=== PATIENT | male | born 1950 | race Caucasian/White ===

== ENCOUNTER 2018-01-31 10:24 | Observation (INO) | payer OTHER, MEDICAID ==
[2018-01-31] VITALS (12 sets, daily range): BP systolic 101–122; BP diastolic 66–84
[~2018-01-31] VITALS: Ht 165.1 cm; Wt 81.6 kg
--- NOTE | ~2018-01-31 | H ---
[address] [address] HISTORY AND PHYSICAL Name: GISSEL DENNISON Room: [address] Nirali Bahena#: [id number] Admission: 01/31/18 Attend Phys: Da Angulo MD, Discharge: 02/01/18 Date of : 48 Report #: [id number] THIS REPORT FOR: //name// Please refer to the History and Physical performed in the physician's office. By: [facility]5Medical Records Staff SCOTT /DELIA
[~2018-01-31 10:24] MED LIST: ALFUZOSIN HCL10 MG PO; ASPIRIN EC81 M1 PO; CARDIZEM CD120 MG PO; CARDIZEM CD360 MG PO; CENTRUM SILVER1 EAC2 PO; COUMADIN 5 MG TA5 M1 PO; FLOMAX0.4 MG PO; FUROSEMIDE 40 M40 M1 PO; LOPRESSOR25 PO; NITROQUICK0.4 MG SC; NITROSTAT0.4 MG SUBLING; OXYBUTYNIN 5 MG5 M2 PO; PLAVIX 75 MG TA75 M1 PO; PLAVIX 75 MG TA75 MG PO; POTASSIUM20 PO; ULTRAM 50MG TAB50 MG PO; VYTORIN 10-201 EACH PO; XANAX 0.5 MG0.5 MG PO
[2018-01-31 11:03] LABS: HEMATOCRIT 45.2 % (42.0-52.0); HEMOGLOBIN 15.3 gm/dL (14.0-18.0); MCH 35.3 pg (26.0-34.0); MCHC 33.9 g/dL (28.0-37.0); MCV 104.2 fL (80.0-100.0); MPV 8.4 fl. (7.2-11.1); RBC 4.34 mil/uL (4.50-6.00); RDW-CV 13.3 % (10.5-14.5); WBC 10.2 thou/uL (4.0-11.0)
[2018-01-31 11:13] LABS: APTT 30.8 Seconds (25.0-31.3); INR 1.6; PROTIME 15.9 Seconds (9.20-11.50)
[2018-01-31 11:16] LABS: ANION GAP 7 mmol/L (7-16); BUN 16 mg/dL (7-18); CALCIUM 8.4 mg/dL (8.5-10.1); CHLORIDE 104 mmol/L (98-107); CO2 29 mmol/L (21-32); CREATININE 0.7 mg/dL (0.6-1.3); GLUCOSE 106 mg/dL (70-99); POTASSIUM 3.2 mmol/L (3.5-5.1); SODIUM 140 mmol/L (136-145)
[2018-01-31 11:21] LABS: ALBUMIN 3.4 g/dL (3.4-5.0); ALKALINE PHOSPHATASE 57 U/L (46-116); HDL CHOLESTEROL 43 mg/dL (>40); SGOT 18 U/L (15-37); SGPT 25 U/L (30-65); TOTAL BILIRUBIN 0.8 mg/dL (<0.1-1.0); TOTAL PROTEIN 7.1 g/dL (6.4-8.2); TRIGLYCERIDE 73 mg/dL (<150); VLDL 15 mg/dL (<40)
[2018-01-31 11:22] LABS: CHOLESTEROL 8 mg/dL (<200); LDL CHOLESTEROL -49 mg/dL (<100); SERUM ASSESSMENT Clear; TC:HDL 0.2 Ratio (Not establshd)
--- NOTE | 2018-01-31 17:40 | NUR ---
ASSUMED CARE OF PATIENT AT 1515 AFTER TRANSFER TO ROOM 223 FROM CROWN IRONER OPERATOR. PATIENT AWAKE, ALERT, AND ORIENTED APPROPRIATELY. ADMISSION ASSESSMENT AND DOCUMENTATION COMPLETED AND CHARTED. CATH SITE TO RIGHT GROIN DRESSING CLEAN, DRY, AND INTACT. NO S/S HEMATOMA. ON BEDREST UNTIL 2114. DENIES NEEDS AT THIS TIME. CALL LIGHT WITHIN REACH. NURSING WILL CONTINUE TO MONITOR.
[2018-02-01 00:22] VITALS: BP 102/68
--- NOTE | 2018-02-01 04:02 | NUR ---
PATIENT RESTING MOST OF THE NIGHT. ASSIST WITH TURNING. IVF RUNNING WITHOUT DIFFICULTIES. NO COMPLAINTS. RT GROIN DRESSING DRY, AND INTACT. NO COMPLAINTS OF PAIN, SOA, OR DISCOMFORT. WILL CONT. WITH CURRENT PLAN OF CARE.
[2018-02-01 04:33] LABS: HEMATOCRIT 42.7 % (42.0-52.0); HEMOGLOBIN 14.5 gm/dL (14.0-18.0); MCH 35.6 pg (26.0-34.0); MCHC 33.9 g/dL (28.0-37.0); MCV 104.8 fL (80.0-100.0); MPV 8.5 fl. (7.2-11.1); RBC 4.07 mil/uL (4.50-6.00); RDW-CV 13.1 % (10.5-14.5); WBC 7.9 thou/uL (4.0-11.0)
[2018-02-01 04:55] LABS: CALCIUM 8.4 mg/dL (8.5-10.1); CREATININE 0.6 mg/dL (0.6-1.3); POTASSIUM 3.4 mmol/L (3.5-5.1); TOTAL PROTEIN 6.2 g/dL (6.4-8.2); TROPONIN-I LEVEL 0.09 ng/mL (<0.06)
[2018-02-01 05:36] VITALS: BP 102/61
[2018-02-01 07:50] VITALS: BP 127/74
[2018-02-01 10:27] VITALS: BP 106/66
[2018-02-01] MEDS ORDERED: EFFIENT10 MG PO (11:01)
[2018-02-01] MEDS ORDERED: ELIQUIS5 MG PO (11:02)
--- NOTE | 2018-02-01 11:49 | NUR ---
ASSUMED PT CARE AT 0730, FULL ASSESMENT DONE CHARTED. PT A/O X4, DENIES PAIN, VSS, C/O DIZZYNESS. PT ATE BREAKFAST AND FEELS BETTER. DIZZYNESS RESOLVED. RECIEVED DISCHARGE ORDERS FROM DR SHEPHERD. PT AND EDUCATED ON NEW MEDS AND ORDERS. ALL QUESTIONS ANSWERED. PT DISCHARGED HOME WITH AT APPROX 1145
--- NOTE | 2018-02-01 12:58 | EKG ---
[place] [address] ELECTROCARDIOGRAM REPORT Name: GISSEL DENNISON Room: [address]#: [id number] Admission: 01/31/18 Attend Phys: Da Angulo MD, Discharge: 02/01/18 Date of : 48 Report #: [id number] THIS REPORT FOR: //name// [facility] Test Date: 2018-01-31 Test Time: 11:27:24 Pat Name: GISSEL DENNISON Department: Room: Gender: Kinesiology Internship: : 1950 Requested By: Da Angulo Order Number: [id number] Paramjit MD: Da Angulo Measurements Intervals [place] Rate: 72 P: OR: QRS: 46 QRSD: 60 T: QT: 517 QTc: 566 Interpretive Statements Atrial fibrillation Low voltage, extremity and precordial leads Prolonged QT interval Baseline wander in lead(s) V1 No previous ECG available for comparison Electronically Signed On 02-01-2018 12:58:40 CDT by Da Angulo [email or web address] <ELECTRONICALLY SIGNED> By: Da Angulo MD, [facility] 02/01/18 1258 1127 1127 Da Angulo MD, [facility] /EPI
--- NOTE | 2018-02-01 13:02 | EKG ---
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: : 1950 Requested By: Da Angulo Order Number: [id number] Paramjit MD: Da Angulo Measurements Intervals [place] Rate: 78 P: OR: QRS: 52 QRSD: 60 T: QT: 527 QTc: 601 Interpretive Statements Atrial fibrillation Low voltage, extremity and precordial leads Minimal ST elevation, inferior leads Prolonged QT interval No previous ECG available for comparison Electronically Signed On 02-01-2018 13:01:59 CDT by Da Angulo [email or web address] <ELECTRONICALLY SIGNED> By: Da Angulo MD, [facility] 02/01/18 1301 1550 1550 Da Angulo MD, FAC /EPI
--- NOTE | 2018-02-01 13:08 | EKG ---
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: : 1950 Requested By: Da Angulo Order Number: [id number] Paramjit MD: Da Angulo Measurements Intervals [place] Rate: 67 P: PA: QRS: 43 QRSD: 62 T: QT: 499 QTc: 527 Interpretive Statements Atrial fibrillation Low voltage, extremity and precordial leads Nonspecific T abnormalities, lateral leads Prolonged QT interval No previous ECG available for comparison Electronically Signed On 02-01-2018 13:08:40 CDT by Da Angulo [email or web address] <ELECTRONICALLY SIGNED> By: Da Angulo MD, [facility] 02/01/18 1308 Da Angulo MD, [facility] /EPI
--- NOTE | 2018-02-01 14:06 | CARD ---
[address] [address] CARDIAC CATH REPORT Name: GISSEL DENNISON RA Room: [address] Nirali Bahena#: [id number] Admission: 01/31/18 Attend Phys: Da Angulo MD, Discharge: 02/01/18 Date of : 48 Report #: [id number] THIS REPORT FOR: //name// APPROVED REPORT Study performed: 01/31/2018 12:44:09 Patient Details Patient Status: Out-Patient Room #: The patient is a 67 year-old male Event Personnel Da Angulo Environmental Services Manager, Sharron Gresham RTR Monitor, Courtney Barney Monitor, Oscar Moffett Hintermaier, Elena RN cheese blender Performed Art Access - R femoral artery* , Left Heart Catheterization, Selective Right and Left Coronary Angiography, PTCA with Stenting of the left main coronary artery; angioplasty of the mid LAD Indication Unstable angina Risk Factors Hypercholesterolemia, Hypertension Previous Procedures/Diagnoses Previous PCI Admission/Lab Medications/Medications given during procedure Aspirin, Platelet Aff. Inhib., Angiomax bolus and infusion Procedure Narrative The patient was brought electively to the Cardiac Catheterization Laboratory and was prepped and draped in a sterile manner. The right femoral was infiltrated with 2% Lidocaine subcutaneous anesthesia. A Windsor 6 FR sheath was inserted into the right femoral artery. Coronary angiography was performed using coronary diagnostic catheters. The right coronary system was accessed and visualized with a 6fr JR 4 catheter. The left coronary system was accessed and visualized with a 6fr JL 4 catheter. The left ventricle was accessed and visualized with a 6fr Straight Pigtail catheter. Left ventricular/Aortic Valve gradient assessed [place] [address] CARDIAC CATH REPORT Name: GISSEL DENNISON Room: [address] Nirali Bahena#: [id number] Admission: 01/31/18 Attend Phys: Da Angulo MD, Discharge: 02/01/18 Date of : 48 Report #: [id number] Left ventriculogram was performed in COLE projection. Pre-demployment femoral angiogram was performed . Closure device was deployed with a 6 Fr Angioseal STS 6Fr. The patient tolerated the procedure well and there were no complications associated with the procedure. There was no hematoma. Intraoperative Conscious Sedation Sedation start time: 13:34 Case end Time: 14:40 Fentanyl 75 mcg Versed 3 mg Fluoro Time: 20 minutes Dose: DAP [id number] cGycm2 489988 mGy Contrast Type and Amount: Visipaque 390 ml Coronary Angiography The patient's coronary anatomy is right dominant. Diagnostic Cath Left Main 90 Percent calcified proximal stenosis LAD Sequential 75 and 60% mid LAD stenoses Circumflex 40% mid vessel narrowing Right Coronary Dominant vessel with 40% ostial 80% clefted calcified mid and 30% distal narrowing Left Ventriculography The left ventricle is normal in size with normal contractility. The left ventricular ejection fraction is estimated to be 55%. Left ventricular wall motion abnormalities are present. There is no mitral insufficiency. Mild anterolateral hypokinesis is noted IVUS Intravascular Ultrasound was performed on the mid left anterior descending artery segment vessel. IVUS Findings NC Trek RX 2.75 X 12 Hemodynamics The aortic pressure is 125/55 mmHg with a mean of mmHg. The left ventricular pressure is 114/5 mmHg with a mean of mmHg. The left ventricular end diastolic pressure is 10 mmHg. There was no gradient across the aortic valve upon pullback. Pullback from the left ventricle to the aorta revealed no gradient [place] [address] CARDIAC CATH REPORT Name: GISSEL DENNISON RA Room: [address] Shruti#: [id number] Admission: 01/31/18 Attend Phys: Da Angulo MD, Discharge: 02/01/18 Date of : 48 Report #: [id number] PCI Technique Lesion Percutaneous coronary intervention was performed on the mid left anterior descending artery segment. The lesion stenosis prior to intervention was 75% with KATHLEEN 3 flow. A 6F XB LAD 3.5 Guide Catheter was used to engage the ostium. A IG: ProwaterFlex 180CM Interventional Guidewire was used to cross the lesion. BALLOON DILATION A Balloon catheter NC Trek RX 2.75 X 12 was inserted and inflated up to 16.00atm for 16seconds. Final angiography reveals 30 % stenosis with KATHLEEN 3 flow. PCI Technique Lesion Percutaneous coronary intervention was performed on the mid left anterior descending artery segment. BALLOON DILATION A Balloon catheter NC Trek RX 2.75 X 12 was inserted and inflated up to 17.00atm for 14seconds. Additional Inflation: 20.00atm for 9seconds. PCI Technique Lesion 2 Percutaneous Coronary Intervention was performed on the proximal left main coronary artery. The lesion stenosis prior to intervention was 90% with KATHLEEN 3 flow. Balloon Dilation A Balloon catheter NC Trek RX 2.75 X 12 was inserted and inflated up to 18.00atm for 10seconds. Additional Inflation: 22.00atm for 7seconds. Stent Deployment A drug-eluting stent Xience Alpine RX 3.0X8 was inserted and inflated up to 18.00atm for 12seconds. Additional Inflation: 20.00atm for 8seconds. Post Stent Deployment Balloon Dilation A Balloon catheter NC Trek RX 3.5 X 8 was inserted and inflated up to 20atm for 10seconds. Additional Inflation: 20.00atm for 9seconds. Final angiography reveals 15 % stenosis with KATHLEEN 3 [place] [address] CARDIAC CATH REPORT Name: JUMA,LEE RA Room: [address] Nirali Bahena#: [id number] Admission: 01/31/18 Attend Phys: Da Angulo MD, Discharge: 02/01/18 Date of : 48 Report #: [id number] Conclusion #1 significant multivessel coronary artery disease characterized by the following: A 90% calcified proximal left main coronary artery stenosis B tandem 75 and 60% mid LAD stenoses C 40% narrowing of the midportion of the nondominant circumflex D dominant right coronary artery with 40% ostial 80% clefted calcified mid and 30% distal narrowing #2 normal global left ventricular systolic function, estimated ejection fraction of 55% with mild anterolateral hypokinesis #3 normal left-sided hemodynamics study #4 successful percutaneous transluminal coronary angioplasty at the site of 75% calcified in-stent mid LAD stenosis with 30% residual narrowing and KATHLEEN-3 flow the distal vessel #5 successful percutaneous coronary intervention with deployment of drug-eluting stent at site of 90% proximal left main coronary stenosis with 15% residual narrowing and KATHLEEN-3 flow to the distal circulation Recommendations Cardiac Risk Reduction Program Aggressive Medical Therapy Medications Administered Aspirin (any) Prasugrel Diagnostic Cath Approved by: Da Angulo MD Date/Time: 02/01/18 at 1404 hrs. <ELECTRONICALLY SIGNED> By: Da Angulo MD, FACC 02/01/18 1406 140 140Da Angulo MD, FACC /INF
--- NOTE | 2018-02-01 15:22 | D ---
[address] [address] DISCHARGE SUMMARY Name: GISSEL DENNISON Room: [address] Nirali Bahena#: [id number] Admission: 01/31/18 Attend Phys: Da Angulo MD, Discharge: 02/01/18 Date of : 48 Report #: [id number] THIS REPORT FOR: //name// CC: [facility] DATE OF SERVICE: 02/01/2018 FINAL DISCHARGE DIAGNOSES: 1. Unstable angina. 2. Coronary artery disease status post stenting of the left main coronary artery and angioplasty of the mid left anterior descending. 3. Permanent atrial fibrillation. 4. History of poliomyelitis at age 1. 5. Hypertension. PROCEDURES: 01/31/2018 -- left heart catheterization, left ventriculography, selective coronary arteriography, and stenting of the left main coronary artery at the site of 90% stenosis with angioplasty of a moderately severe mid LAD lesion. The patient is a very pleasant 67-year-old male with a history of childhood poliomyelitis. He has had complex coronary artery disease, status post multiple prior stents. He has underlying hypertension and permanent atrial fibrillation. Recently, he noted recrudescence of chest pain and dyspnea on exertion typical of his prior anginal syndrome following a pattern of clinical instability. In that context, I performed cardiac catheterization on 01/31/2018, which revealed 90% ostial left main coronary narrowing with 70% mid LAD narrowing and 80% mid right coronary stenosis, this being a dominant vessel. I performed percutaneous coronary intervention of the left main, deploying one 3.0 x 8 mm Xience Alpine drug-eluting stent at the ostium LAD, post-dilating to 3.5 mm with 10% residual narrowing and KATHLEEN 3 flow of the distal vessel. I dilated the in-stent restenosis mid LAD lesion with 30% residual narrowing. Given the dye load and radiation exposure, I elected to plan a staged intervention to the high grade mid right coronary stenosis. He did well post-procedurally without problems with hemostasis at the right femoral site of catheterization. Experienced transitory dizziness, which cleared without specific intervention. He demonstrated the following laboratory on 02/01/2018. Hemoglobin 14.5, white blood cell count 7900 with 159,000 platelets. Sodium 140, potassium 3.2, [place] [address] DISCHARGE SUMMARY Name: GISSEL DENNISON RA [address]: [address] [id number] Admission: 01/31/18 Attend Phys: Da Angulo MD, Discharge: 02/01/18 Date of : 48 Report #: [id number], creatinine 0.7. He ambulated in his usual fashion with some difficulty by virtue of the childhood poliomyelitis using his arms for activities and was discharged to home on the following medications: Alfuzosin 10 mg daily, aspirin 81 mg daily, diltiazem 120 mg daily, Vytorin 10/20 daily, metoprolol tartrate 12.5 mg b.i.d., Centrum Silver 1 tablet daily, oxybutynin chloride 5 mg at bedtime, Effient 10 mg daily with a 60 mg loading dose, alprazolam 0.5 mg p.r.n., p.r.n. sublingual nitroglycerin, Ultram 50 mg every 6 hours as needed for pain, and institution of Eliquis 5 mg b.i.d. to be started on 02/02/2018 in the context of his permanent atrial fibrillation. I will plan to see the patient in the office on 02/06/2018 to review his clinical status with consideration of a stage intervention of the right coronary artery and timing for same. Thus, the patient is discharged to home in stable condition on the aforementioned medications with followup as iterated above. <ELECTRONICALLY SIGNED> By: Da Angulo MD, [facility] 02/01/18 1522 0957 1100Joashok Angulo MD, FAC /nt
== END 2018-02-01 11:43 | disposition home or self-care (01) ==
LOC: M.CL 10:24 → M.2W 15:04 → M.TBA-ER 15:04 → M.2W 15:04
PROVIDERS: ADMIT Internal Medicine
DX: I25.110 Atherosclerotic heart disease of native coronary artery with unstable angina pectoris (principal); I48.2 Chronic atrial fibrillation; A80.9 Acute poliomyelitis, unspecified; I10 Essential (primary) hypertension; E78.5 Hyperlipidemia, unspecified; Z95.5 Presence of coronary angioplasty implant and graft

== ENCOUNTER 2018-02-14 10:44 | Observation (INO) | payer OTHER, MEDICAID ==
[2018-02-14] VITALS (14 sets, daily range): BP systolic 99–129; BP diastolic 63–81
[~2018-02-14] VITALS: Ht 165.1 cm; Wt 79.4 kg
--- NOTE | ~2018-02-14 | H ---
[address] [address] HISTORY AND PHYSICAL Name: GISSEL DENNISON Room: [address] Nirali Bahena#: [id number] Admission: 02/14/18 Attend Phys: Da Angulo MD, Discharge: 02/15/18 Date of : 48 Report #: [id number] THIS REPORT FOR: //name// Please refer to the History and Physical performed in the physician's office. By: 1536Medical Records Staff SCOTT /DELIA
[~2018-02-14 10:44] MED LIST changes: +EFFIENT10 MG PO; +ELIQUIS5 MG PO
[2018-02-14 11:30] LABS: HEMATOCRIT 45.9 % (42.0-52.0); HEMOGLOBIN 15.5 gm/dL (14.0-18.0); MCH 35.2 pg (26.0-34.0); MCHC 33.8 g/dL (28.0-37.0); MCV 104.2 fL (80.0-100.0); MPV 8.5 fl. (7.2-11.1); RBC 4.41 mil/uL (4.50-6.00); RDW-CV 13.3 % (10.5-14.5); WBC 7.6 thou/uL (4.0-11.0)
[2018-02-14 11:37] LABS: CALCIUM 8.6 mg/dL (8.5-10.1); CREATININE 0.7 mg/dL (0.6-1.3); POTASSIUM 3.2 mmol/L (3.5-5.1)
[2018-02-14 11:39] LABS: APTT 28.4 Seconds (25.0-31.3); INR 1.1; PROTIME 10.9 Seconds (9.20-11.50)
--- NOTE | 2018-02-14 13:42 | EKG ---
[place] [address] ELECTROCARDIOGRAM REPORT Name: GISSEL DENNISON Room: [address] [place] .R.#: [id number] Admission: 02/14/18 Attend Phys: Da Angulo MD, Discharge: Date of : 48 Report #: [id number] THIS REPORT FOR: //name// [facility] Test Date: 2018-02-14 Test Time: 11:11:12 Pat Name: GISSEL DENNISON Department: Room: Gender: Physician Specialist: [facility] : 1950 Requested By: Da Angulo Order Number: [id number] Reading MD: Tru Brooks Measurements Intervals [place] Rate: 82 P: TN: QRS: 46 QRSD: 68 T: 242 QT: 443 QTc: 518 Interpretive Statements Atrial fibrillation Low voltage, extremity and precordial leads Nonspecific T abnormalities, lateral leads Prolonged QT interval Compared to ECG 02/01/2018 08:36:06 No significant changes Electronically Signed On 02-14-2018 13:42:22 CDT by Tru Brooks [email or web address] <ELECTRONICALLY SIGNED> By: Tru Brooks MD, FACC 02/14/18 1342 1111 1111 Tru Brooks MD, [facility] /EPI
--- NOTE | 2018-02-14 18:06 | EKG ---
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: [facility] : 1950 Requested By: Da Angulo Order Number: [id number] Paramjit MD: Tru Brooks Measurements Intervals [place] Rate: 76 P: [place]: QRS: 45 QRSD: 93 T: 117 QT: 480 QTc: 540 Interpretive Statements Atrial fibrillation Low voltage, extremity and precordial leads Nonspecific T abnormalities, lateral leads Prolonged QT interval Compared to ECG 02/14/2018 11:11:12 No significant changes Electronically Signed On 02-14-2018 18:06:36 CDT by Tru Brooks [email or web address] <ELECTRONICALLY SIGNED> By: Tru Brooks MD, [facility] 02/14/18 1806 1340 1340 Tru Brooks MD, [facility] /EPI
[2018-02-15] VITALS: BP 100/61
[2018-02-15 04:00] VITALS: BP 99/58
[2018-02-15 04:33] LABS: HEMATOCRIT 41.6 % (42.0-52.0); HEMOGLOBIN 14.1 gm/dL (14.0-18.0); MCH 35.6 pg (26.0-34.0); MCHC 33.9 g/dL (28.0-37.0); MPV 8.8 fl. (7.2-11.1); RBC 3.96 mil/uL (4.50-6.00); RDW-CV 13.1 % (10.5-14.5); WBC 6.9 thou/uL (4.0-11.0)
[2018-02-15 04:45] LABS: ALBUMIN 2.9 g/dL (3.4-5.0); ALKALINE PHOSPHATASE 57 U/L (46-116); ANION GAP 5 mmol/L (7-16); BUN 13 mg/dL (7-18); CHLORIDE 109 mmol/L (98-107); CHOLESTEROL 85 mg/dL (<200); CO2 30 mmol/L (21-32); CREATININE 0.8 mg/dL (0.6-1.3); GLUCOSE 110 mg/dL (70-99); HDL CHOLESTEROL 41 mg/dL (>40); LDL CHOLESTEROL 32 mg/dL (<100); SGOT 14 U/L (15-37); SGPT 20 U/L (30-65); SODIUM 144 mmol/L (136-145); TC:HDL 2.1 Ratio (Not establshd); TOTAL BILIRUBIN 0.5 mg/dL (<0.1-1.0); TOTAL PROTEIN 5.8 g/dL (6.4-8.2); TRIGLYCERIDE 63 mg/dL (<150); TROPONIN-I LEVEL <0.06 ng/mL (<0.06); VLDL 13 mg/dL (<40)
[2018-02-15 04:50] LABS: POTASSIUM 4.4 mmol/L (3.5-5.1)
[2018-02-15 05:50] LABS: SERUM ASSESSMENT Clear
[2018-02-15 08:00] VITALS: BP 110/74
[2018-02-15 10:15] VITALS: BP 116/76
[2018-02-15] MEDS ORDERED: NITROGLYCERIN0.4 MG SUBLING (10:18)
--- NOTE | 2018-02-15 15:21 | EKG ---
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: : 1950 Requested By: Da Angulo Order Number: [id number] Paramjit MD: Da Angulo Measurements Intervals [place] Rate: 73 P: OR: QRS: 60 QRSD: 94 T: 45 QT: 428 QTc: 472 Interpretive Statements Atrial fibrillation Low voltage, extremity and precordial leads Compared to ECG 02/14/2018 13:40:07 T-wave abnormality no longer present Prolonged QT interval no longer present Electronically Signed On 02-15-2018 15:21:50 CDT by Da Angulo [email or web address] <ELECTRONICALLY SIGNED> By: Da Angulo MD, [facility] 02/15/18 1521 0829 0829 Da Angulo MD, [facility] /EPI
--- NOTE | 2018-02-16 10:05 | D ---
[address] [address] DISCHARGE SUMMARY Name: JUMAGISSEL Room: [address] Nirali Bahena#: [id number] Admission: 02/14/18 Attend Phys: Da Angulo MD, Discharge: 02/15/18 Date of : 48 Report #: [id number] THIS REPORT FOR: //name// CC: [facility] DATE OF SERVICE: 02/15/2018 FINAL DISCHARGE DIAGNOSES: 1. Unstable angina. 2. Status post percutaneous coronary intervention of the right coronary artery and previously to the left main and left anterior descending. 3. Permanent atrial fibrillation. 4. Hypertension. 5. Poliomyelitis in childhood. PROCEDURES: On 02/14/2018 - left heart catheterization, selective coronary arteriography and percutaneous coronary intervention with deployment of drug-eluting stent at the site of 80% calcified mid right coronary stenosis. HOSPITAL COURSE: The patient is a very pleasant 67-year-old male with coronary artery disease, hypertension and permanent atrial fibrillation. Recently, he has noted recrudescence of chest pain similar to his prior angina following an unstable course. Two weeks ago, I performed intervention on the left main and mid LAD, with a good angiographic result. He also demonstrated a high-grade mid right coronary stenosis at that time. Given the clinical findings, I performed re-catheterization on 02/15/2018, which revealed widely patent left main stent with a widely patent and dilated mid LAD. I performed intervention on the mid right coronary artery, deploying one 2.5 x 14 mm Integrity Resolute drug-eluting stent, post-dilated to 2.75 mm with 10% residual narrowing and KATHLEEN 3 flow of the distal vessel. Troponin remained in the reference range of less than 0.06. He did well post-procedurally and was continued on dual antiplatelet therapy with aspirin and Effient. There was good hemostasis at the right femoral site of catheterization. DISCHARGE MEDICATIONS: The patient was discharged to home on 02/15/2018 on the following medications: Alfuzosin 10 mg daily; apixaban 5 mg b.i.d., to be resumed on 02/17/2018; diltiazem 120 mg extended release daily; Vytorin 10/20 daily; metoprolol tartrate 12.5 mg b.i.d.; oxybutynin 5 mg at bedtime; prasugrel or Effient 10 mg daily; alprazolam 0.5 mg every 6-8 hours p.r.n.; tramadol 50 mg q. 6 hours as needed and aspirin 81 mg daily. I will plan to see the patient in the office in 4-6 weeks for clinical followup. I suggested re-participation [place] [address] DISCHARGE SUMMARY Name: GISSEL DENNISON Room: [address] Nirali Bahena#: [id number] Admission: 02/14/18 Attend Phys: Da Angulo MD, Discharge: 02/15/18 Date of : 48 Report #: [id number] [facility] in [place]. Thus, the patient is discharged to home in stable condition on the aforementioned medications with followup as iterated above. <ELECTRONICALLY SIGNED> By: Da Angulo MD, [facility] 02/16/18 1005 0950 1033Joashok Angulo MD, FAC /nt
--- NOTE | 2018-02-16 11:17 | CARD ---
[address] [address] CARDIAC CATH REPORT Name: JUMAGISSEL Room: [address] Nirali Bahena#: [id number] Admission: 02/14/18 Attend Phys: Da Angulo MD, Discharge: 02/15/18 Date of : 48 Report #: [id number] THIS REPORT FOR: //name// APPROVED REPORT Study performed: 02/14/2018 11:57:18 Patient Details Patient Status: Out-Patient Room #: The patient is a 67 year-old male Event Personnel Da Angulo Tankage Supervisor, Lizzy Gresham Batch Analyst, Bowen Bynum (R) Monitor, Oscar Moffett, Mariana Payne RN Batch Analyst Procedures Performed CHRIS Place w/wo Plasty Single RCA; left heart catheterization with selective coronary arteriography Indication Unstable angina Risk Factors Hypercholesterolemia, Hypertension Previous Procedures/Diagnoses Previous PCI Admission/Lab Medications/Medications given during procedure Aspirin, Platelet Aff. Inhib., Angiomax bolus and infusion Procedure Narrative The patient was brought electively to the Cardiac Catheterization Laboratory and was prepped and draped in a sterile manner. A Escalon 6 FR sheath was inserted into the Right Femoral Artery. Coronary angiography was performed using coronary diagnostic catheters. The right coronary system was accessed and visualized with a Diagnostic JR4 catheter. The left coronary system was accessed and visualized with a Diagnostic JL4 catheter. The left ventricle was accessed and visualized with a Diagnostic Angled Pigtail catheter. Left ventricular/Aortic Valve gradient assessed via catheter pullback. Closure device was deployed with a Fr Angioseal STS 6Fr. The patient tolerated the procedure well and there were no complications [place] [address] CARDIAC CATH REPORT Name: JUMAGISSEL FINLEY RA Room: [address] Nirali Bahena#: [id number] Admission: 02/14/18 Attend Phys: Da Angulo MD, Discharge: 02/15/18 Date of : 48 Report #: [id number] Intraoperative Conscious Sedation Sedation start time: 12:29 Case end Time: 13:13 Fentanyl 25 mcg Versed 2 mg Fluoro Time: 8.5 minutes Dose: DAP [id number] cGycm2 1830 mGy Contrast Type and Amount: Visipaque 150 ml Diagnostic Cath Left Main 10% narrowing at the stented proximal left main coronary site LAD 40% mid LAD in-stent restenosis 60% calcified midcircumflex narrowing Right Coronary 80% heavily calcified mid right coronary stenosis with 34-40% proximal narrowing Left Ventriculography Left Ventriculography was not performed. IVUS A Guide Catheter was used to engage the 6F JR 4.0 ostium. A IG: ProwaterFlex 180CM was used. IVUS Findings NC Trek RX 2.5 X 12 Hemodynamics The aortic pressure is 120/72 mmHg with a mean of 91 mmHg. The left ventricular pressure is 105/3 mmHg with a mean of mmHg. The left ventricular end diastolic pressure is 10 mmHg. PCI Technique Lesion Anticoagulation was achieved with Angiomax. Patient was preloaded with Angiomax IV 12 ml. Percutaneous coronary intervention was performed on the mid right coronary artery. The lesion stenosis prior to intervention was 80% with KATHLEEN 3 flow. A 6F JR 4.0 Guide Catheter was used to engage the ostium. A IG: ProwaterFlex 180CM Interventional Guidewire was used to cross the lesion. BALLOON DILATION A Balloon catheter Trek RX 2.5 X 12 was inserted and inflated up to 12.00atm for 12seconds. Additional Inflation: 15.00atm for 10seconds. [place] [address] CARDIAC CATH REPORT Name: GISSEL DENNISON Room: [address] Nirali Bahena#: [id number] Admission: 02/14/18 Attend Phys: Da Angulo MD, Discharge: 02/15/18 Date of : 48 Report #: [id number] STENT DEPLOYMENT A drug-eluting stent Resolute RX 2.5X14 was inserted and inflated up to 15atm for 15seconds. POST STENT DEPLOYMENT BALLOON DILATION A Balloon catheter NC Trek RX 2.75 X 8 was inserted and inflated up to 16atm for 10seconds. Final angiography reveals 10 % stenosis with KATHLEEN 3 flow. PCI Technique Lesion A 6F JR 4.0 Guide Catheter was used to engage the ostium. A IG: ProwaterFlex 180CM Interventional Guidewire was used to cross the lesion. BALLOON DILATION A Balloon catheter NC Trek RX 2.5 X 12 was inserted and inflated up to 18.00atm for 11seconds. Additional Inflation: 20.00atm for 9seconds. Additional Inflation: 22.00atm for 9seconds. STENT DEPLOYMENT A drug-eluting stent Resolute RX 2.5X14 was inserted and inflated up to 12.00atm for 12seconds. Additional Inflation: 16.00atm for 9seconds. POST STENT DEPLOYMENT BALLOON DILATION A Balloon catheter NC Trek RX 2.75 X 8 was inserted and inflated up to 16.00atm for 9seconds. Additional Inflation: 18.00atm for 7seconds. Additional Inflation: 20.00atm for 8seconds. Conclusion #1 Significant multivessel coronary artery disease characterized by the following A 10% narrowing of a previously stented left main coronary artery B 40% mid LAD in-stent restenosis C 60% calcified midcircumflex stenosis, this being a nondominant vessel D dominant right coronary artery with 30-40% proximal narrowing and 80% heavily calcified mid vessel stenosis #2 normal left-[place] [address] CARDIAC CATH REPORT Name: JUMAGISSEL FINLEY RA Room: [address] Nirali Bahena#: [id number] Admission: 02/14/18 Attend Phys: Da Angulo MD, Discharge: 02/15/18 Date of : 48 Report #: [id number] #3 successful percutaneous coronary intervention with deployment of drug-eluting stent at site of 80% heavily calcified mid right coronary stenosis with 10% residual narrowing and KATHLEEN-3 flow the distal vessel Recommendations Cardiac Risk Reduction Program Aggressive Medical Therapy Medications Administered Aspirin (any) Prasugrel Diagnostic Cath Approved by: Da Angulo MD Date/Time: 02/16/18 and 1115 hrs. <ELECTRONICALLY SIGNED> By: Da Angulo MD, FAC 02/16/181115 15 15Da Angulo MD, FACC /INF
== END 2018-02-15 11:15 | disposition home or self-care (01) ==
LOC: M.CL 10:44 → M.2W 13:32 → M.TBA-CV 13:32 → M.2W 14:39
PROVIDERS: ADMIT Internal Medicine
DX: I25.110 Atherosclerotic heart disease of native coronary artery with unstable angina pectoris (principal); I48.2 Chronic atrial fibrillation; I10 Essential (primary) hypertension; A80.9 Acute poliomyelitis, unspecified; E78.5 Hyperlipidemia, unspecified; Z95.5 Presence of coronary angioplasty implant and graft

== ENCOUNTER → 2018-07-25 | Outpatient (CLI) | payer OTHER, MEDICAID ==
[~2018-07-25] MED LIST changes: +NITROGLYCERIN0.4 MG SUBLING
--- NOTE | 2018-07-25 16:39 | CARDNUC ---
[place] [address] CARDIAC NUCLEAR IMAGING REPORT Name: GISSEL DENNISON Room: [facility] [facility]#: [id number] Admission: 07/25/18 Attend Phys: Gurwinder Muller Discharge: Date of : 48 Date of Service: 07/25/18 1639 Report #: [id number] THIS REPORT FOR: //name// APPROVED REPORT Imaging Protocol: Rest Tc-99m/Stress Tc-99m 1 day Study performed: 07/25/2018 11:30:00 Indication: Atrial Fibrillation s/pstents Patient Location: Out-Patient Stress Tech: Padmini Munoz Stress Nurse: Lenora Obrien RN NM Tech:VINAY Bolanos Ht: 5 ft 5 in Wt: 180 lbs BSA: 1.89 m2 BMI: 29.95 Medical History Medical History: a fib, cad, hyperlipidemia, hypertension, hx polio Medications: eliquis, asa 81, diltiazem, vytorin, metoprolol, effient Allergies: nkda Cardiac Risk Factors: age, hyperlipidemia, Previous Cardiac Procedures: pci Exercise History: Sedentary Meds Held (24 hrs): metoprolol Resting Data Rest SPECT myocardial perfusion imaging was performed in supine position 30 minutes following the intravenous injection of 11.9 mCi of Tc-99m Sestamibi. Time of rest injection: 1245 Date: 07/25/2018 Time of rest imagin The images were gated to evaluate regional wall motion and calculate left ventricular ejection fraction. Administration Route: IV Administration Site: Right Hand Pharmacologic Stress Pharmacologic stress test was performed by injecting Regadenoson 0.4 mg IV push over 10-15 seconds immediately followed by the intravenous injection of 33.7 mCi of Tc-99m Sestamibi. Time of stress injection: 1425 Time [place] [address] CARDIAC NUCLEAR IMAGING REPORT Name: GISSEL DENNISON Room: [facility]#: [id number] Admission: 07/25/18 Attend Phys: Gurwinder Muller Discharge: Date of : 48 Date of Service: 07/25/18 1639 Report #: [id number] Administration Route: IV Administration Site: Right Hand Gated Stress SPECT was performed 40 minutes after stress injection. The images were gated to evaluate regional wall motion and calculate left ventricular ejection fraction. Stress only was performed in the Supine position. Stress Test Details Stress Test: Pharmacologic stress testing performed using 0.4 mg of regadenoson per 5 mL given IV over 10 seconds. Reason for pharmacologic stress test: physical limitation. HR Max Heart Rate (APMHR): 152 bpm Resting HR: 82 bpm Target HR (85% APMHR): 129 bpm Max HR Achieved: 131 bpm % of APMHR: 86 Recovery HR: 103 bpm HR response to stress: Normal HR response to stress BP Resting BP: 123/70 mmHg Max BP: 128/73 mmHg Recovery BP: 133/83 mmHg BP response to stress: Normal blood pressure response to stress. ECG Resting ECG: afib nst Stress ECG: afib ST Change: none Recovery ECG: afib Recovery ST Change: none Clinical Reason for Termination: Completed protocol Stress Symptoms: None Exercise duration: 0 min sec Exercise capacity: 1 METs Nurse Comments pt wheelchair bound Stress ECG Conclusion negative ischemia, afib [place] [address] CARDIAC NUCLEAR IMAGING REPORT Name: JUMAGISSEL RA Room: [facility]#: [id number] Admission: 07/25/18 Attend Phys: Gurwinder Muller Discharge: Date of : 48 Date of Service: 07/25/18 1639 Report #: [id number] Study: Fair Artifact: Moderate Soft tissue attenuation artifact Study Data At rest, the left ventricular ejection fraction was 80%.. Post stress, the left ventricular ejection was 80%.. SSS: 9 SRS: 7 SDS: 2 TID = 1.04. Perfusion Review of SPECT images reveals a patchy, inhomongenous uptake of tracer in all segments, but no defined reversible defects. Images were reviewed using Xeleris. Wall Motion normal all segments Nuclear Conclusion ECG Findings: negative for ischemia Clinical Findings: negative for ischemia Nuclear Findings: negative for ischemia Exercise Capacity: not assessed Left Ventricular Function: normal Risk Study: low Negative perfusion nuclear stress test for ischemia. Normal LV function.Afib noted. <Conclusion> negative ischemia, afib noted <ELECTRONICALLY SIGNED> By: Carter Calhoun MD, FACC 07/25/18 1639 1639 1639 Carter Calhoun MD, FACC /INF
== END ==
LOC: M.NUC 11:34
DX: I48.91 Unspecified atrial fibrillation (principal); I25.10 Atherosclerotic heart disease of native coronary artery without angina pectoris; E78.5 Hyperlipidemia, unspecified; I10 Essential (primary) hypertension; Z95.5 Presence of coronary angioplasty implant and graft

== ENCOUNTER → 2019-08-30 | Outpatient (CLI) | payer OTHER, MEDICAID ==
--- NOTE | 2019-09-02 17:23 | CARDNUC ---
[place] [address] CARDIAC NUCLEAR IMAGING REPORT Name: JUMAGISSEL Room: [facility]#: [id number] Admission: 08/30/19 Attend Phys: Gurwinder Muller Discharge: Date of : 48 Date of Service: 09/02/19 1722 Report #: [id number] THIS REPORT FOR: cc: Gene Nation,Tru Pena MD [facility] ~ APPROVED REPORT Imaging Protocol: Rest Tc-99m/Stress Tc-99m 1 day Study performed: 08/30/2019 12:15:00 Indication: Cardiac Clearance, CAD Patient Location: Out-Patient Stress Tech: Padmini Munoz Stress Nurse: Mary Lou Watts RN NM Tech:VINAY Bolanos Ht: 5 ft 5 in Wt: 177 lbs BSA: 1.88 m2 HR: 109 bpm BP: 122/83 mmHg BMI: 29.45 Rhythm: Atrial Fibrillation Medical History Medical History: Atrial Fibrillation, CAD s/p [place] Medications: Metoprolol, Eliquis, Cardizem, Vytorin, Effient Allergies: No known drug allergies Cardiac Risk Factors: Age, Hyperlipidemia, HTN Previous Cardiac Procedures: PCI Meds Held (24 hrs): Metoprolol Resting Data Rest SPECT myocardial perfusion imaging was performed in supine position 30 minutes following the intravenous injection of 12.0 mCi of Tc-99m Sestamibi. Time of rest injection: 1230 Date: 08/30/2019 The images were gated to evaluate regional wall motion and calculate left ventricular ejection fraction. Administration Route: IV Administration Site: Right Hand Pharmacologic Stress Pharmacologic stress test was performed by injecting Regadenoson 0.4 mg IV push over 10-15 seconds immediately [place] [address] CARDIAC NUCLEAR IMAGING REPORT Name: GISSEL DENNISON [id number] Admission: 08/30/19 Attend Phys: Gurwinder Muller Discharge: Date of : 48 Date of Service: 09/02/19 1722 Report #: [id number] injection of 34.0 mCi of Tc-99m Sestamibi. Time of stress injection: 1405 Date: 08/30/2019 Administration Route: IV Administration Site: Right Hand Gated Stress SPECT was performed 40 minutes after stress injection. The images were gated to evaluate regional wall motion and calculate left ventricular ejection fraction. Stress only was performed in the Supine position. Stress Test Details Stress Test: Pharmacologic stress testing performed using 0.4 mg of regadenoson per 5 mL given IV over 10 seconds. Reason for pharmacologic stress test: physical limitation. HR Max Heart Rate (APMHR): 151 bpm Resting HR: 109 bpm Target HR (85% APMHR): 128 bpm Max HR Achieved: 123 bpm % of APMHR: 81 Recovery HR: 106 bpm HR response to stress: Normal HR response to stress BP Resting BP: 122/83 mmHg Max BP: 100/61 mmHg Recovery BP: 111/67 mmHg BP response to stress: Normal blood pressure response to stress. ECG Resting ECG: Atrial Fibrillation Stress ECG: Atrial Fibrillation ST Change: None Recovery ECG: Atrial Fibrillation Recovery ST Change: None Clinical Reason for Termination: Completed protocol Stress Symptoms: None The patient tolerated Lexiscan infusion without significant cardiac symptoms. Stress ECG Conclusion The baseline 12-lead EKG shows atrial fibrillation with subtle ST segment depression. EKGs obtained during and post Lexiscan infusion show atrial fibrillation with no significant ST segment changes when compared to baseline. There were no other stress-[place] [address] CARDIAC NUCLEAR IMAGING REPORT Name: GISSEL DENNISON Room: [facility]#: [id number] Admission: 08/30/19 Attend Phys: Gurwinder Muller Discharge: Date of : 48 Date of Service: 09/02/19 1722 Report #: [id number] arrhythmias. Study Quality Study: Good Artifact: No artifact Study Data At rest, the left ventricular ejection fraction was 57%.. Post stress, the left ventricular ejection was 71%.. TID = 0.91. Perfusion Perfusion images obtained at rest and post Lexiscan stress show uniform uptake of the radioisotope throughout the myocardium without specific defect. Wall Motion Normal left ventricular wall motion. Nuclear Conclusion ECG Findings: non-diagnostic Clinical Findings: negative for ischemia Nuclear Findings: negative for ischemia Exercise Capacity: not assessed Left Ventricular Function: normal Risk Study: low Perfusion images show no defect to suggest infarct or ischemia. Left ventricular systolic function is normal on gated studies. This is a low risk study. <Conclusion> The baseline 12-lead EKG shows atrial fibrillation with subtle ST segment depression. EKGs obtained during and post Lexiscan infusion show atrial fibrillation with no significant ST segment changes when compared to baseline. There were no other stress-induced arrhythmias. <ELECTRONICALLY SIGNED> By: Tru Brooks MD, FACC 09/02/191721 21 21 Tru Brooks MD, FACC /INF
== END ==
LOC: M.NUC 08-21 14:45
DX: I25.10 Atherosclerotic heart disease of native coronary artery without angina pectoris (principal); I48.91 Unspecified atrial fibrillation